=== PATIENT | male | born 1960 | race African-American/Black ===

== ENCOUNTER 2025-01-05 09:02 | Inpatient (IN) | payer BC ==
[2025-01-05] MEDS ORDERED: Ketorolac Tromethamine 30 MG (1 mL) VIAL ONE (10:08)
[2025-01-05 10:42] LABS: #Basophils 0.03 10x3/uL (0.0-0.2); #Eosinophils 0.06 10x3/uL (0.0-0.7); #Monocytes 1.00 10x3/uL (0.11-0.59); #Neutrophils 7.54 10x3/uL (1.40-6.50); %Basophils 0.3 % (0.0-1.0); %Eosinophils 0.6 % (0.0-10.0); %Lymphocytes 20.3 % (21.0-51.0); %Monocytes 9.2 % (0.0-10.0); %Neutrophils 69.0 % (42.0-75.0); Hematocrit 31.0 % (42.0-52.0); Hemoglobin 10.0 g/dL (14.0-18.0); Mean Corpuscular Hemoglobin 28.0 pg (27.0-31.0); Mean Corpuscular Volume 86.8 fL (78.0-98.0); Platelet Count 480 10x3/uL (130-400); Red Blood Cell (RBC) Count 3.57 mill/uL (4.70-6.10); White Blood Cell (WBC) Count 10.90 10x3/uL (4.8-10.8)
[2025-01-05 11:01] LABS: CAUTI Indications for Culture Acute Hematuria; Glucose, Urine (Dipstick) Normal (Negative); Leukocyte 500 Leu/uL (Negative); Mucous/LPF Rare LPF (<2+); Protein, Urine (Dipstick) 70 mg/dL (Neg-Trace); Specific Gravity, Urine 1.008 (1.002-1.036); WBC/HPF Greater than 50 HPF (0-3)
[2025-01-05 11:02] LABS: Bacteria/HPF 1+ HPF (None Seen)
[2025-01-05 11:03] LABS: Urine Culture Reflex Yes Yes
[2025-01-05 11:13] LABS: ALT (SGPT) 31 U/L (Less than 45); AST (SGOT) 53 U/L (11-34); Albumin 3.1 g/dL (3.1-4.5); Alkaline Phosphatase 109 U/L (40-110); Anion Gap 19 mmol/L (10-20); BUN (Urea Nitrogen) 103 mg/dL (8.4-25.7); Bilirubin, Total 0.4 mg/dL (0.3-1.2); Calc. Creatinine Clearance 0 mL/min (70-130); Calcium 10.1 mg/dL (7.8-10.44); Carbon Dioxide 14 mmol/L (23-31); Chloride 114 mmol/L (98-107); Globulin 6.3 g/dL (2.4-3.5); Glucose 145 mg/dL (80-115); Potassium 6.8 mmol/L (3.5-5.1); Sodium 140 mmol/L (136-145)
[2025-01-05] MEDS ORDERED: cefTRIAXone (ROCEPHIN) 2 GM VIAL ONE (11:32)
[2025-01-05] MEDS ORDERED: CALCIUM GLUC 1 GM/NS 50 ML IV Bag ONE (11:49)
[2025-01-05] MEDS ORDERED: Dextrose 50% Abboject 50 ML SYRINGE ONE (11:49)
[2025-01-05] MEDS ORDERED: Lidocaine 2% 6 ML (Jelly) SYR ONE (12:16)
[2025-01-05] MEDS ORDERED: hydrALAZINE 20 MG/ML VIAL SLOW IVP PRN (15:34)
[2025-01-05] MEDS ORDERED: Glucagon 1 MG/ML KIT IM PRN (15:34)
[2025-01-05] MEDS ORDERED: Ondansetron PF 4 MG/2 ML Vial IVP PRN (15:34)
[2025-01-05] MEDS ORDERED: Dextrose 50% Abboject 50 ML SYRINGE SLOW IVP PRN (15:34)
[2025-01-05 15:47] VITALS: BMI 28.2
[2025-01-05] MEDS: Albumin 25% 25 GM (100 mL) BOT IVPB SCH ×2 (17:05→18:19)
[2025-01-05 17:06] LABS: Anion Gap 15 mmol/L (10-20); BUN (Urea Nitrogen) 92 mg/dL (8.4-25.7); Calc. Creatinine Clearance 16 mL/min (70-130); Calcium 9.1 mg/dL (7.8-10.44); Carbon Dioxide 13 mmol/L (23-31); Chloride 118 mmol/L (98-107); Glucose 82 mg/dL (80-115); Potassium 6.1 mmol/L (3.5-5.1); Sodium 140 mmol/L (136-145)
[2025-01-05] MEDS: Famotidine 20 MG TAB PO SCH (20:13)
[2025-01-05] MEDS: Acetaminophen 500 MG TAB PO PRN (23:13)
[2025-01-06 06:11] LABS: #Basophils 0.05 10x3/uL (0.0-0.2); #Eosinophils 0.11 10x3/uL (0.0-0.7); #Monocytes 0.75 10x3/uL (0.11-0.59); #Neutrophils 5.02 10x3/uL (1.40-6.50); %Basophils 0.5 % (0.0-1.0); %Eosinophils 1.2 % (0.0-10.0); %Lymphocytes 35.3 % (21.0-51.0); %Monocytes 8.1 % (0.0-10.0); %Neutrophils 54.5 % (42.0-75.0); Hematocrit 31.2 % (42.0-52.0); Hemoglobin 9.9 g/dL (14.0-18.0); Mean Corpuscular Hemoglobin 27.3 pg (27.0-31.0); Mean Corpuscular Volume 86.0 fL (78.0-98.0); Platelet Count 408 10x3/uL (130-400); Red Blood Cell (RBC) Count 3.63 mill/uL (4.70-6.10); White Blood Cell (WBC) Count 9.23 10x3/uL (4.8-10.8)
[2025-01-06 06:27] LABS: ALT (SGPT) 19 U/L (Less than 45); AST (SGOT) 17 U/L (11-34); Albumin 3.6 g/dL (3.1-4.5); Alkaline Phosphatase 86 U/L (40-110); Anion Gap 19 mmol/L (10-20); BUN (Urea Nitrogen) 83 mg/dL (8.4-25.7); Bilirubin, Total 0.4 mg/dL (0.3-1.2); Calc. Creatinine Clearance 19 mL/min (70-130); Calcium 9.9 mg/dL (7.8-10.44); Carbon Dioxide 12 mmol/L (23-31); Chloride 116 mmol/L (98-107); Globulin 5.1 g/dL (2.4-3.5); Glucose 105 mg/dL (80-115); Iron 46 ug/dL (65-175); Potassium 5.5 mmol/L (3.5-5.1); Sodium 141 mmol/L (136-145)
[2025-01-06 06:44] LABS: Ferritin 428.74 ng/mL (22-322)
[2025-01-06 06:46] LABS: PSA-Symptomatic (DIAGNOSTIC) 6.927 ng/mL (0-4.0)
[2025-01-06] MEDS: LOKELMA 10 GM PACKET PO SCH ×3 (09:24→22:18)
[2025-01-06] MEDS: cefTRIAXone\\ROCEPHIN 1 GM in Sodium Chloride 0.9% 100 ML IVPB SCH (09:24)
[2025-01-06 15:39] LABS: Anion Gap 18 mmol/L (10-20); Carbon Dioxide 15 mmol/L (23-31); Chloride 111 mmol/L (98-107); Potassium 7.1 mmol/L (3.5-5.1); Sodium 137 mmol/L (136-145)
[2025-01-06] MEDS: Dextrose 50% Abboject 50 ML SYRINGE SLOW IVP SCH (17:16)
[2025-01-06] MEDS: CALCIUM GLUC 1 GM/NS 50 ML 1 GM in Premix 1 BAG IVPB SCH (17:18)
[2025-01-06] MEDS: Sodium Bicarb 50 MEQ/50 ML Abboject 8.4% SYRINGE IVP SCH ×2 (17:32→22:18)
[2025-01-06] MEDS: Sodium Bicarb 50 MEQ/50 ML Abboject 8.4% SYRINGE ONE (18:27)
[2025-01-06 20:25] LABS: Anion Gap 19 mmol/L (10-20); Carbon Dioxide 15 mmol/L (23-31); Chloride 112 mmol/L (98-107); Potassium 5.6 mmol/L (3.5-5.1); Sodium 140 mmol/L (136-145)
[2025-01-06] MEDS: Famotidine 20 MG TAB PO SCH (20:26)
[2025-01-06] MEDS: Insulin Glargine 30 UNITS/0.3 ML VIAL SC SCH (20:27)
[2025-01-07] MEDS: Albuterol 2.5 MG (3 mL) NEB NEB SCH (00:02)
[2025-01-07] MEDS: Albuterol 2.5 MG (3 mL) NEB ONE (02:47)
[2025-01-07 04:55] LABS: Hematocrit 28.1 % (42.0-52.0); Hemoglobin 9.2 g/dL (14.0-18.0); Mean Corpuscular Hemoglobin 27.5 pg (27.0-31.0); Mean Corpuscular Volume 83.9 fL (78.0-98.0); Platelet Count 417 10x3/uL (130-400); Red Blood Cell (RBC) Count 3.35 mill/uL (4.70-6.10); White Blood Cell (WBC) Count 8.61 10x3/uL (4.8-10.8)
[2025-01-07 05:27] LABS: Anion Gap 16 mmol/L (10-20); BUN (Urea Nitrogen) 59 mg/dL (8.4-25.7); Calc. Creatinine Clearance 24 mL/min (70-130); Calcium 9.3 mg/dL (7.8-10.44); Carbon Dioxide 17 mmol/L (23-31); Chloride 113 mmol/L (98-107); Glucose 105 mg/dL (80-115); Magnesium 1.4 mg/dL (1.6-2.6); Potassium 5.0 mmol/L (3.5-5.1); Sodium 141 mmol/L (136-145)
[2025-01-07] MEDS: Aspirin 81 mg Enteric Coated Tablet PO SCH (08:40)
[2025-01-07] MEDS ORDERED: Valsartan 80 MG TAB PO SCH (09:00)
[2025-01-07] MEDS: Magnesium Sulfate In Water 4 GM in Premix 1 BAG IVPB SCH (12:06)
[2025-01-07] MEDS: Sodium Ferric Gluconate 250 MG in Sodium Chloride 0.9% 250 ML 250 ML IVPB SCH (13:17)
[2025-01-08 05:51] LABS: Anion Gap 14 mmol/L (10-20); BUN (Urea Nitrogen) 56 mg/dL (8.4-25.7); Calc. Creatinine Clearance 25 mL/min (70-130); Calcium 9.4 mg/dL (7.8-10.44); Carbon Dioxide 19 mmol/L (23-31); Chloride 113 mmol/L (98-107); Glucose 106 mg/dL (80-115); Magnesium 2.2 mg/dL (1.6-2.6); Potassium 5.8 mmol/L (3.5-5.1); Sodium 140 mmol/L (136-145)
[2025-01-08] MEDS: Sodium Bicarbonate Tab 325 MG TAB PO SCH (12:00)
[2025-01-08 14:44] LABS: Anion Gap 16 mmol/L (10-20); BUN (Urea Nitrogen) 51 mg/dL (8.4-25.7); Calc. Creatinine Clearance 25 mL/min (70-130); Calcium 9.6 mg/dL (7.8-10.44); Carbon Dioxide 19 mmol/L (23-31); Chloride 113 mmol/L (98-107); Glucose 104 mg/dL (80-115); Potassium 5.7 mmol/L (3.5-5.1); Sodium 142 mmol/L (136-145)
[2025-01-09 05:18] LABS: Anion Gap 15 mmol/L (10-20); BUN (Urea Nitrogen) 45 mg/dL (8.4-25.7); Calc. Creatinine Clearance 28 mL/min (70-130); Calcium 9.6 mg/dL (7.8-10.44); Carbon Dioxide 20 mmol/L (23-31); Chloride 111 mmol/L (98-107); Glucose 123 mg/dL (80-115); Potassium 5.1 mmol/L (3.5-5.1); Sodium 141 mmol/L (136-145)
[2025-01-09 15:21] VITALS: BP 126/81; TEMP 98.5
== END 2025-01-09 17:00 | disposition home or self-care (01) | DRG 683 ==
LOC: ERS 09:02 → 2NO 12:47
PROVIDERS: ADMIT Family Medicine; ATTEND Internal Medicine
PROC: 3E03329 Introduction of Other Anti-infective into Peripheral Vein, Percutaneous Approach (ICD-10-PCS; principal; 2025-01-05)
PROC: 0T9B70Z Drainage of Bladder with Drainage Device, Via Natural or Artificial Opening (ICD-10-PCS; 2025-01-05)
DX: N17.9 Acute kidney failure, unspecified (principal); E87.20 Acidosis, unspecified; N13.8 Other obstructive and reflux uropathy; N40.1 Benign prostatic hyperplasia with lower urinary tract symptoms; N13.6 Pyonephrosis; E87.5 Hyperkalemia; Z79.82 Long term (current) use of aspirin; Z79.899 Other long term (current) drug therapy; Z79.4 Long term (current) use of insulin; I12.9 Hypertensive chronic kidney disease with stage 1 through stage 4 chronic kidney disease, or unspecified chronic kidney disease; E11.22 Type 2 diabetes mellitus with diabetic chronic kidney disease; N18.9 Chronic kidney disease, unspecified; D63.1 Anemia in chronic kidney disease; D50.9 Iron deficiency anemia, unspecified; N32.89 Other specified disorders of bladder
CPT/HCPCS: 36415; 36416; 51702; 74176; 80048; 80053; 81001; 82274; 82728; 83540; 83735; 84100; 84153; 85025; 85027; 85046; 87040; 87086; 93005; 93010; 93306; 94640; 96365; 96375; J0613; J0696; J1815; J1885; J2060; J2916; J3475; J7030; J7042; J7050; J7120; J7611; J7999; P9047